=== PATIENT | male | born 1970 | race African-American/Black ===

== ENCOUNTER 2020-10-23 16:58 | Emergency (ER) | payer MEDICAID ==
[~2020-10-23] VITALS: Ht 172.7 cm; Wt 79.4 kg
[2020-10-23 18:39] VITALS: BP 170/103
== END 2020-10-23 19:19 | disposition home or self-care (01) ==
LOC: ER 16:58
DX: M79.605 Pain in left leg (principal); M25.552 Pain in left hip; G40.909 Epilepsy, unspecified, not intractable, without status epilepticus; I10 Essential (primary) hypertension; F17.210 Nicotine dependence, cigarettes, uncomplicated; Z76.0 Encounter for issue of repeat prescription
CPT/HCPCS: 73502; 73562